=== PATIENT | male | born 1980 | race Caucasian/White ===

== ENCOUNTER 2016-05-18 16:14 | Emergency (ER) | payer OTHER ==
[~2016-05-18 16:14] MED LIST: AMOXICILLIN PO; BENADRYL25 M1 PO; BENTYL20 MG PO; CIPRO PO; DICLOFENAC PO; FLEXERIL10 MG PO; HYDROCODON-ACE1 EAC9 PO; LEVAQUIN PO; LORTAB 7.51 TAB 7.5/ DOB; MOTRIN600 M2 PO; MOTRIN600 MG PO; NO MEDICATIONS; NORCO1 TAB 10/3 PO; PEN-VEE K PO; PHENERGAN25 MG PO; TOBREX5 ML OP; TRAMADOL HCL50 M1 PO; ULTRAM PO; VOLTAREN75 MG PO; ZOFRAN ODT4 MG PO
== END 2016-05-18 16:16 | disposition home or self-care (01) ==
LOC: SED 16:14
DX: H66.91 Otitis media, unspecified, right ear (principal); F17.210 Nicotine dependence, cigarettes, uncomplicated; Z79.899 Other long term (current) drug therapy
CPT/HCPCS: 99282